=== PATIENT | male | born 1940 | race Caucasian/White ===

== ENCOUNTER → 2018-04-28 | Outpatient (CLI) | payer MEDICARE, BC ==
[~2018-04-28] MED LIST: CALC-126 PO; CYAN1TAB29 PO; LISI5TAB7 PO; MV-M1TAB16 PO; OMEP-110 PO; POLY17PO5 PO; TEST75GE TP; VIT1CAPS16 PO; vitamin b-6 PO
[2018-04-28 10:50] LABS: BASOPHILS # (AUTO) 0.03 x10^3/uL (0-0.1); BASOPHILS % (AUTO) 0 % (0-1); EOSINOPHILS # (AUTO) 0.06 x10^3/uL (0-0.4); EOSINOPHILS % (AUTO) 1 % (1-7); LYMPHOCYTES # (AUTO) 1.27 x10^3/uL (1-3.4); LYMPHOCYTES % (AUTO) 18 % (22-44); MD NO; MEAN CORPUSCULAR HEMOGLOBIN 32.7 pg (27.5-34.5); MEAN CORPUSCULAR VOLUME 96.1 fL (81-97); MEAN PLATELET VOLUME 8.1 fL (7.4-10.4); MONOCYTES # (AUTO) 0.53 x10^3/uL (0.2-0.8); MONOCYTES % (AUTO) 8 % (2-9); NEUTROPHILS # (AUTO) 4.98 x10^3/uL (1.8-6.8); NEUTROPHILS % (AUTO) 73 % (42-75); PLATELET COUNT 180 x10^3/uL (130-400); RED BLOOD COUNT 5.79 x10^6/uL (4.38-5.82); RED CELL DISTRIBUTION WIDTH 13.7 % (9.4-14.8)
[2018-04-28 10:57] LABS: INTERNATIONAL NORMALIZED RATIO 1.06 (0.93-1.1)
[2018-04-28 11:00] LABS: ALANINE AMINOTRANSFERASE 30 U/L (12-78); ALBUMIN 3.8 g/dL (3.4-5.0); ANION GAP 6 mmol/L (5-15); CALCIUM 9.2 mg/dL (8.5-10.1); CHLORIDE 105 mmol/L (98-107); CREATININE 0.94 mg/dL (0.7-1.3)
[2018-04-28 11:02] LABS: ALKALINE PHOSPHATASE 46 U/L (45-117); BILIRUBIN,TOTAL 0.8 mg/dL (0.2-1.0); TOTAL PROTEIN 7.6 g/dL (6.4-8.2)
== END | disposition home or self-care (01) ==
LOC: STAR 09:35
PROVIDERS: ATTEND Neurological Surgery
DX: Z01.818 Encounter for other preprocedural examination (principal); M48.062 Spinal stenosis, lumbar region with neurogenic claudication; I44.7 Left bundle-branch block, unspecified
CPT/HCPCS: 36415; 71046; 80053; 85025; 85610; 85730; 93005

== ENCOUNTER 2018-05-21 10:54 | Inpatient (IN) | payer MEDICARE, BC ==
[~2018-05-21] VITALS: Ht 172.7 cm; Wt 84.0 kg
[2018-05-21] MEDS ORDERED: GABAPENTIN 300 MG CAPSULE PO ONE (11:30)
[2018-05-21] MEDS ORDERED: ACETAMINOPHEN 500 MG TABLET PO ONE (11:30)
[2018-05-21] MEDS ORDERED: LACTATED RINGERS 1,000 ML IV SCH (11:36)
[2018-05-21] MEDS ORDERED: LIDOCAINE-MPF 1%, 2ML ONE (11:38)
[2018-05-21] MEDS ORDERED: LIDOCAINE-MPF 1%, 2ML INFIL ONE (12:00)
[2018-05-21] MEDS ORDERED: MIDAZOLAM 1 MG/ML, 2ML ONE (13:34)
[2018-05-21] MEDS ORDERED: FENTANYL PF 250 MCG/5ML ONE (13:36)
[2018-05-21] MEDS ORDERED: LIDOCAINE-MPF 2% ,5ML ONE (13:36)
[2018-05-21] MEDS ORDERED: CEFAZOLIN 1,000 MG ONE ×2 (13:37)
[2018-05-21] MEDS ORDERED: SODIUM CHLORIDE 0.9% PF 10ML ONE (13:37)
[2018-05-21] MEDS ORDERED: DEXAMETHASONE 4 MG/ML, 1ML ONE ×2 (13:39)
[2018-05-21] MEDS ORDERED: ROCURONIUM 10 MG/ML,10ML ONE (14:13)
[2018-05-21] MEDS ORDERED: PROPOFOL 10 MG/ML, 20ML ONE (14:13)
[2018-05-21] MEDS ORDERED: PHENYLEPHRINE 10 MG/ML ONE (14:13)
[2018-05-21] MEDS ORDERED: BUPIVACAINE/PF-EPI 0.5% 1:200K INFIL ONE (14:40)
[2018-05-21] MEDS ORDERED: BACITRACIN 50,000 UNIT IM ONE (14:40)
[2018-05-21] MEDS ORDERED: THROMBIN 5,000 UNIT VIAL TP ONE (14:41)
[2018-05-21] MEDS ORDERED: BUPIVACAINE/PF 0.5% INFIL ONE (14:55)
[2018-05-21] MEDS ORDERED: PROMETHAZINE 25 MG/ML, 1ML IV PRN (15:00)
[2018-05-21] MEDS ORDERED: hydrALAzine 20 MG/ML, 1ML IV PRN (15:00)
[2018-05-21] MEDS ORDERED: MEPERIDINE/PF 25MG/0.5ML IVPush PRN (15:00)
[2018-05-21] MEDS ORDERED: OXYcodone 5 MG/5 ML ORAL.SOL UDC PO PRN (15:00)
[2018-05-21] MEDS ORDERED: LABETALOL 5MG/ML, 20ML IV PRN (15:00)
[2018-05-21] MEDS ORDERED: HYDROmorphone 1 MG/ML, 1ML IV PRN (15:00)
[2018-05-21] MEDS ORDERED: FENTANYL PF 100 MCG/2ML IV PRN (15:00)
[2018-05-21] MEDS ORDERED: HALOPERIDOL 5 MG/ML IV PRN (15:00)
[2018-05-21] MEDS ORDERED: FENTANYL PF 100 MCG/2ML ONE (15:33)
[2018-05-21] MEDS ORDERED: ONDANSETRON 2MG/ML, 2ML ONE ×2 (15:39)
[2018-05-21] MEDS ORDERED: HYDROmorphone 2 MG/ML, 1ML ONE (16:26)
[2018-05-21] MEDS ORDERED: OXYcodone 5 MG/5 ML ORAL.SOL UDC ONE (16:26)
[2018-05-21 17:31] VITALS: BP 129/79
[2018-05-21] MEDS ORDERED: morphine SULFATE 10 MG/ML, 1ML IV PRN (19:00)
[2018-05-21] MEDS ORDERED: CYCLOBENZAPRINE 10 MG TABLET PO PRN (19:00)
[2018-05-21] MEDS ORDERED: HYDROcodone/APAP 5/325 TABLET PO PRN (19:00)
[2018-05-21] MEDS ORDERED: OXYcodone/APAP 5/325MG TABLET PO PRN (19:00)
[2018-05-21] MEDS ORDERED: MAGNESIUM HYDROXIDE 8%, 30ML UDC PO PRN (19:00)
[2018-05-21] MEDS ORDERED: DIPHENHYDRAMINE 50 MG/ML, 1ML IVPush PRN (19:00)
[2018-05-21] MEDS ORDERED: PROMETHAZINE 25 MG/ML, 1ML IM PRN (19:00)
[2018-05-21] MEDS ORDERED: BISACODYL 10 MG SUPP PR PRN (19:00)
[2018-05-21] MEDS ORDERED: METHOCARBAMOL 750 MG TABLET PO PRN (19:00)
[2018-05-21] MEDS ORDERED: ONDANSETRON 2MG/ML, 2ML IV PRN (19:00)
[2018-05-21] MEDS ORDERED: NS + 20MEQ KCL 1,000 ML IV SCH (19:00)
[2018-05-21 20:07] VITALS: BP 122/77
[2018-05-21] MEDS: CEFAZOLIN PMX 1GM/50ML 50 ML IVPB SCH (22:24)
[2018-05-22 01:51] VITALS: BP 128/80
[2018-05-22 05:00] VITALS: BP 126/78
[2018-05-22 05:08] LABS: BASOPHILS # (AUTO) 0.02 x10^3/uL (0-0.1); BASOPHILS % (AUTO) 0 % (0-1); EOSINOPHILS % (AUTO) 0 % (1-7); LYMPHOCYTES # (AUTO) 0.48 x10^3/uL (1-3.4); LYMPHOCYTES % (AUTO) 5 % (22-44); MD NO; MEAN CORPUSCULAR HEMOGLOBIN 33.3 pg (27.5-34.5); MEAN CORPUSCULAR HGB CONC 33.9 g/dL (33.2-36.2); MEAN CORPUSCULAR VOLUME 98.2 fL (81-97); MEAN PLATELET VOLUME 8.6 fL (7.4-10.4); MONOCYTES # (AUTO) 0.65 x10^3/uL (0.2-0.8); MONOCYTES % (AUTO) 6 % (2-9); NEUTROPHILS # (AUTO) 9.45 x10^3/uL (1.8-6.8); NEUTROPHILS % (AUTO) 89 % (42-75); PLATELET COUNT 193 x10^3/uL (130-400); RED BLOOD COUNT 4.89 x10^6/uL (4.38-5.82); RED CELL DISTRIBUTION WIDTH 13.7 % (9.4-14.8)
[2018-05-22 05:24] LABS: CHLORIDE 107 mmol/L (98-107)
[2018-05-22 05:29] LABS: ALBUMIN 2.7 g/dL (3.4-5.0); ANION GAP 8 mmol/L (5-15); CALCIUM 8.2 mg/dL (8.5-10.1); CREATININE 0.93 mg/dL (0.7-1.3)
[2018-05-22] MEDS: CEFAZOLIN PMX 1GM/50ML 50 ML IVPB SCH (05:34)
[2018-05-22] MEDS ORDERED: OMEPRAZOLE 20 MG CAPSULE.DR PO SCH (07:30)
[2018-05-22 08:08] VITALS: BP 148/83
[2018-05-22] MEDS ORDERED: SENNA/DOCUSATE TABLET PO SCH (09:00)
[2018-05-22] MEDS ORDERED: LISINOPRIL 5 MG TABLET PO SCH (09:00)
[2018-05-22] MEDS ORDERED: POLYETHYLENE GLYCOL 17 GM PACKET PO SCH (09:00)
[2018-05-22] MEDS ORDERED: CYCL-259 PO (09:03)
[2018-05-22] MEDS ORDERED: HYDR-3240 PO (09:03)
== END 2018-05-22 10:36 | disposition home or self-care (01) | DRG 519 ==
LOC: OUT 10:54 → 4NOR 17:22 → OUT 17:24 → 4NOR 17:25 → DCLOUNGE 05-22 10:23
PROVIDERS: ADMIT Neurological Surgery; ATTEND Neurological Surgery
PROC: 0SB20ZZ Excision of Lumbar Vertebral Disc, Open Approach (ICD-10-PCS; 2018-05-21)
PROC: 01NB0ZZ Release Lumbar Nerve, Open Approach (ICD-10-PCS; principal; 2018-05-21 14:00)
DX: M48.061 Spinal stenosis, lumbar region without neurogenic claudication (principal); E44.1 Mild protein-calorie malnutrition; M54.10 Radiculopathy, site unspecified; M19.90 Unspecified osteoarthritis, unspecified site; Z87.891 Personal history of nicotine dependence; Z82.61 Family history of arthritis; Z82.49 Family history of ischemic heart disease and other diseases of the circulatory system; Z80.8 Family history of malignant neoplasm of other organs or systems
CPT/HCPCS: 36415; 72100; 80048; 82040; 85025; J0690; J1100; J1170; J2250; J2405; J2704; J3010; J3480; J3490; J2370; J7120

== ENCOUNTER 2020-11-10 08:13 | Day surgery (SDC) | payer MEDICARE, BC ==
[~2020-11-10] VITALS: Ht 172.7 cm; Wt 84.0 kg
[~2020-11-10 08:13] MED LIST changes: +CYCL-259 PO; +HYDR-3240 PO
[2020-11-10] MEDS ORDERED: BUDE10.2 INH (08:52)
[2020-11-10] MEDS ORDERED: CARV6.2512 PO (08:52)
[2020-11-10] MEDS ORDERED: VIT1CAPS42 PO (08:52)
[2020-11-10] MEDS ORDERED: CHOL10003 PO (08:52)
[2020-11-10] MEDS ORDERED: MAGN400T26 PO (08:52)
[2020-11-10] MEDS ORDERED: CYAN500T42 PO (08:52)
[2020-11-10] MEDS ORDERED: VITA1TAB PO (08:52)
[2020-11-10] MEDS ORDERED: SODIUM CHLORIDE 0.9% 1,000 ML IV SCH (09:00)
[2020-11-10 09:23] LABS: BASOPHILS % (AUTO) 1 % (0-1); EOSINOPHILS % (AUTO) 2 % (1-7); LYMPHOCYTES % (AUTO) 21 % (22-44); MEAN CORPUSCULAR HEMOGLOBIN 32.9 pg (27.5-34.5); MEAN CORPUSCULAR HGB CONC 33.5 g/dL (33.2-36.2); MEAN PLATELET VOLUME 8.8 fL (7.4-10.4); MONOCYTES % (AUTO) 10 % (2-9); NEUTROPHILS % (AUTO) 67 % (42-75); PLATELET COUNT 187 x10^3/uL (130-400); RED BLOOD COUNT 5.44 x10^6/uL (4.38-5.82); RED CELL DISTRIBUTION WIDTH 13.7 % (9.4-14.8)
[2020-11-10 09:24] LABS: ANION GAP 5 mmol/L (5-15); CALCIUM 9.2 mg/dL (8.5-10.1); CHLORIDE 110 mmol/L (98-107); CREATININE 1.04 mg/dL (0.7-1.3); MD NO
[2020-11-10] MEDS ORDERED: LIDOCAINE 2%, 20ML ONE (11:13)
[2020-11-10] MEDS ORDERED: FENTANYL PF 100 MCG/2ML ONE ×2 (11:18→11:21)
[2020-11-10] MEDS ORDERED: PROPOFOL 10 MG/ML, 20ML ONE (11:19)
[2020-11-10] MEDS ORDERED: DEXAMETHASONE 4 MG/ML, 5ML ONE (11:27)
[2020-11-10] MEDS ORDERED: SUCCINYLCHOLINE 20 MG/ML, 10ML ONE (11:27)
[2020-11-10] MEDS ORDERED: EPHEDRINE 50 MG/ML, 1ML ONE (11:27)
[2020-11-10] MEDS ORDERED: ISOPROTERENOL 0.2MG/ML, 5ML ONE (11:39)
[2020-11-10] MEDS ORDERED: ONDANSETRON 2MG/ML, 2ML ONE (11:55)
[2020-11-10] MEDS ORDERED: PROMETHAZINE 25 MG/ML, 1ML ONE (12:29)
[2020-11-10] MEDS ORDERED: ONDANSETRON 2MG/ML, 2ML IVPush PRN (12:30)
[2020-11-10] MEDS ORDERED: MIDAZOLAM 1 MG/ML, 2ML IV PRN (12:30)
[2020-11-10] MEDS ORDERED: ACETAMINOPHEN 325 MG TABLET PO PRN (12:30)
[2020-11-10] MEDS ORDERED: HYDROmorphone 1 MG/ML, 1ML INJ IVPush PRN (12:30)
[2020-11-10] MEDS ORDERED: MEPERIDINE/PF 25MG/0.5ML IVPush PRN (12:30)
[2020-11-10] MEDS ORDERED: PROMETHAZINE 12.5 MG SUPP PR PRN (12:30)
[2020-11-10] MEDS ORDERED: EPHEDRINE 50 MG/ML, 1ML IVPush PRN (12:30)
[2020-11-10] MEDS ORDERED: PROMETHAZINE 25 MG/ML, 1ML IVPush PRN (12:30)
[2020-11-10] MEDS ORDERED: OXYcodone 5 MG/5 ML ORAL.SOL UDC PO PRN (12:30)
[2020-11-10] MEDS ORDERED: DIAZEPAM 5 MG/ML, 2ML IVPush PRN (12:30)
[2020-11-10] MEDS ORDERED: FENTANYL PF 100 MCG/2ML IV PRN (12:30)
[2020-11-10] MEDS ORDERED: LABETALOL 5MG/ML, 20ML IV PRN (12:30)
[2020-11-10] MEDS ORDERED: ALBUTEROL SULFATE 2.5 MG/3 ML NPPB PRN (12:30)
[2020-11-10] MEDS ORDERED: DIPHENHYDRAMINE 50 MG/ML, 1ML IVPush PRN (12:30)
[2020-11-10] MEDS ORDERED: hydrALAzine 20 MG/ML, 1ML IV PRN (12:30)
[2020-11-10] MEDS ORDERED: CARVEDILOL 6.25 MG TABLET PO SCH (21:00)
[2020-11-10] MEDS ORDERED: TEMPLATE NON-FORMULARY MED. (Budesonide/Formoterol Fumarate (Symbicort 160-4.5 Mcg Inhaler INH SCH (21:00)
[2020-11-11] MEDS ORDERED: [UNRECOGNIZED DRUG - OTHER] PO SCH (09:00)
[2020-11-11] MEDS ORDERED: CYANOCOBALAMIN PO SCH (09:00)
[2020-11-11] MEDS ORDERED: OMEPRAZOLE 20 MG CAPSULE.DR PO SCH (09:00)
[2020-11-11] MEDS ORDERED: CHOLECALCIFEROL 1,000 UNIT TABLET PO SCH (09:00)
[2020-11-11] MEDS ORDERED: TESTOSTERONE PUMP TP SCH (09:00)
[2020-11-11] MEDS ORDERED: TEMPLATE NON-FORMULARY MED. (Vit C/E/Zn/Coppr/Lutein/Zeaxan** (Preservision Areds 2 Softge PO SCH (09:00)
[2020-11-11] MEDS ORDERED: LISINOPRIL 5 MG TABLET PO SCH (09:00)
[2020-11-11] MEDS ORDERED: FOLIC ACID PO SCH (09:00)
[2020-11-11] MEDS ORDERED: VITAMIN B COMPLEX PO SCH (09:00)
[2020-11-11] MEDS ORDERED: MAGNESIUM OXIDE 400 MG PO SCH (09:00)
== END 2020-11-10 16:33 | disposition home or self-care (01) ==
LOC: CACL 08:13
PROVIDERS: ATTEND Internal Medicine Cardiovascular Disease
DX: R55 Syncope and collapse (principal); I49.3 Ventricular premature depolarization; I42.8 Other cardiomyopathies; I47.2 Ventricular tachycardia; I10 Essential (primary) hypertension; I25.10 Atherosclerotic heart disease of native coronary artery without angina pectoris; G47.33 Obstructive sleep apnea (adult) (pediatric); Z79.899 Other long term (current) drug therapy; Z87.891 Personal history of nicotine dependence
CPT/HCPCS: 33285; 36415; 71046; 80048; 85025; 93620; 93623; C1730; C1894; J0330; J1100; J2405; J2550; J2704; J3010